=== PATIENT | female | born 1985 | race Two or more races ===

== ENCOUNTER 2019-08-28 09:04 | Outpatient (CLI) | payer OTHER | END 2019-08-28 09:16 | disposition home or self-care (01) | LOC: RAD 09:04 | DX: N93.0 Postcoital and contact bleeding (principal) ==

== ENCOUNTER 2020-08-26 09:45 | Inpatient (IN) | payer OTHER ==
[~2020-08-26] VITALS: Ht 162.6 cm; Wt 93.4 kg
[2020-08-26] MEDS ORDERED: SYNTHROID50 MCG PO (13:06)
[2020-08-26] MEDS ORDERED: IRON PO (13:07)
[2020-08-26] MEDS ORDERED: NASAL MIST126 ML (13:07)
[2020-08-26] MEDS ORDERED: OBTREX DHA COM1 EACH PO (13:07)
== END 2020-09-04 12:52 | disposition home or self-care (01) | DRG 785 ==
LOC: SURG-SUITE 09-02 06:00 → O/R 09-02 06:00 → OB/GYN 09-02 07:00 → SURG-SUITE 09-02 16:05
PROVIDERS: ADMIT Obstetrics & Gynecology; ATTEND Obstetrics & Gynecology
PROC: 0UB70ZZ Excision of Bilateral Fallopian Tubes, Open Approach (ICD-10-PCS; 2020-09-02)
PROC: 4A1HXFZ Monitoring of Products of Conception, Cardiac Rhythm, External Approach (ICD-10-PCS; 2020-09-02)
PROC: 10D00Z1 Extraction of Products of Conception, Low, Open Approach (ICD-10-PCS; principal; 2020-09-02 07:00)
DX: O34.211 Maternal care for low transverse scar from previous cesarean delivery (principal); Z3A.39 39 weeks gestation of pregnancy; Z37.0 Single live birth; Z30.2 Encounter for sterilization